=== PATIENT | male | born 1980 | race Caucasian/White ===

== ENCOUNTER 2019-07-16 21:10 | Observation (INO) ==
[2019-07-16] MEDS ORDERED: SODIUM CHLORIDE 0.9% 500 ML IV STA (22:04)
[2019-07-16 22:25] LABS: Basophils % 0.3 % (0.0-0.8); Eosinophils # 0.3 10*3/uL (0.0-0.87); Eosinophils % 4.8 % (0.00-10.9); Hematocrit 34.4 VOL% (42.0-52.0); Hemoglobin 12.5 GM/DL (14.0-18.0); Immature Granulocytes % 0.9 %; Immature Granulocytes Absolute 0.06 #; Lymphocytes # 2.9 10*3/uL (1.4-4.0); Lymphocytes % 45.1 % (21.2-54.2); Mean Corpuscular HGB Conc 36.3 GM/DL (32-36); Mean Corpuscular Volume 82.5 FL (87-102); Mean Platelet Volume 9.4 FL (9.6-12.0); Neutrophils % 39.9 % (38.7-73.9); Platelet Count 210 T/CUMM (130-400); Red Blood Count 4.17 MC/CUMM (3.8-5.5); Red Cell Distribution Width 11.9 % (9.3-17.3); White Blood Count 6.5 T/CUMM (4-12)
[2019-07-16 22:31] LABS: Alanine Aminotransferase 37 U/L (16-61); Albumin 3.4 G/DL (3.4-5.0); Alkaline Phosphatase 102 U/L (45-117); Aspartate Amino Transferase 23 U/L (0-37); Blood Urea Nitrogen 14 MG/DL (7-18); Calcium 8.1 MG/DL (8.5-10.1); Estimated Glom Filtration Rate 124 ML/MIN; Glucose 85 MG/DL (74-106); Osmolality,Calculated 239.3 MOS/KG (273-304); Total Protein 6.6 G/DL (6.4-8.3); Troponin I < 0.015 NG/ML (0.00-0.045)
[2019-07-16 22:43] LABS: PT Patient Result 10.7 SECS (9.6-12.2)
[2019-07-17] MEDS ORDERED: NICOTINE 21 MG/24 HR PATCH TRANSDERM PRN (00:08)
[2019-07-17] MEDS ORDERED: ONDANSETRON 4 MG/2 ML VIAL IV PRN (00:08)
[2019-07-17 03:08] LABS: Calcium 8.2 MG/DL (8.5-10.1); Osmolality,Calculated 234.6 MOS/KG (273-304)
[2019-07-17 03:11] LABS: Risk Ratio 2.82; VLDL CHOLESTEROL 21.6 MG/DL
[2019-07-17 05:15] LABS: Apearance,Urine CLEAR (Clear); Bilirubin,Urine Negative (Negative); Blood, Urine Negative (Negative); Glucose,Urine (UA) Negative (Negative); Ketones,Urine 5 mg/dL (Negative); Mucus,Urine Occasional /LPF (Occasional); Nitrite,Urine Negative (Negative); Protein,Urine Negative; RBC,Urine 1 /HPF (0-4); Urine Color Yellow (Yellow); Urine Specific Gravity 1.014 (1.001-1.035); Urine Urobilinogen < 2.0 EU/DL (0.2-1.0); WBC,Urine 1 /HPF (0-6)
[2019-07-17 06:50] LABS: Barbiturates Screen,Urine Negative (Negative); Benzodiazepines Screen,Urine Negative (Negative); Cannabinoid Screen,Urine Negative (Negative); Opiate Screen,Urine Negative (Negative); Phencyclidine Screen,Urine Negative (Negative)
[2019-07-17 07:14] LABS: Calcium 7.9 MG/DL (8.5-10.1); Osmolality,Calculated 237.3 MOS/KG (273-304)
[2019-07-17] MEDS: SODIUM CHLORIDE 0.9% 1,000 ML IV SCH ×2 (10:47→23:34)
[2019-07-17 14:37] LABS: Calcium 8.3 MG/DL (8.5-10.1); Osmolality,Calculated 241.1 MOS/KG (273-304)
[2019-07-18 00:17] LABS: Calcium 8.2 MG/DL (8.5-10.1); Osmolality,Calculated 255.9 MOS/KG (273-304)
[2019-07-18 05:19] LABS: Basophils % 0.4 % (0.0-0.8); Eosinophils # 0.2 10*3/uL (0.0-0.87); Eosinophils % 3.3 % (0.00-10.9); Hematocrit 37.1 VOL% (42.0-52.0); Hemoglobin 13.4 GM/DL (14.0-18.0); Immature Granulocytes % 1.1 %; Immature Granulocytes Absolute 0.05 #; Lymphocytes # 1.9 10*3/uL (1.4-4.0); Lymphocytes % 40.6 % (21.2-54.2); Mean Corpuscular HGB Conc 36.1 GM/DL (32-36); Mean Corpuscular Volume 83.2 FL (87-102); Mean Platelet Volume 9.7 FL (9.6-12.0); Monocytes % 11.2 % (1.7-12.7); Neutrophils % 43.4 % (38.7-73.9); Platelet Count 196 T/CUMM (130-400); Red Blood Count 4.46 MC/CUMM (3.8-5.5); White Blood Count 4.6 T/CUMM (4-12)
[2019-07-18 05:39] LABS: Calcium 8.4 MG/DL (8.5-10.1); Free T4 (Free Thyroxine) 1.24 NG/DL (0.76-1.46); Osmolality,Calculated 251.2 MOS/KG (273-304)
[2019-07-18] MEDS: SODIUM CHLORIDE 0.9% 1,000 ML IV SCH ×2 (10:31→15:25)
[2019-07-18 15:41] LABS: Osmolality, Serum 237 mOsm/kg (275 - 295)
[2019-07-18 17:31] LABS: Osmolality, Urine 525 mOsm/kg (150 - 1150)
[2019-07-18] MEDS ORDERED: DIVALPROEX ER 500 MG TABLET PO SCH (21:00)
[2019-07-18] MEDS: OXcarbazepine 300 MG TABLET PO SCH (21:01)
[2019-07-18] MEDS: amLODIPine 2.5 MG TABLET PO SCH (21:01)
[2019-07-18] MEDS: PROPRANOLOL 20 MG TABLET PO SCH (21:02)
[2019-07-19 00:18] LABS: Calcium 8.3 MG/DL (8.5-10.1); Osmolality,Calculated 274.5 MOS/KG (273-304)
[2019-07-19] MEDS: SODIUM CHLORIDE 0.9% 1,000 ML IV SCH ×2 (00:40→06:26)
[2019-07-19] MEDS: OXcarbazepine 300 MG TABLET PO SCH (08:42)
[2019-07-19] MEDS: amLODIPine 2.5 MG TABLET PO SCH (08:45)
[2019-07-19] MEDS: PROPRANOLOL 20 MG TABLET PO SCH (08:45)
[2019-07-19] MEDS ORDERED: DIVALPROEX ER 500 MG TABLET PO SCH (09:00)
[2019-07-19 16:25] VITALS: BP 128/83
== END 2019-07-19 17:20 | disposition home or self-care (01) ==
LOC: N.ED 21:10 → N.EDINP 21:10 → SUATTDRO 07-17 00:08 → N.2W 07-17 01:42
PROVIDERS: ADMIT Internal Medicine; ATTEND Internal Medicine